=== PATIENT | female | born 2005 ===

== ENCOUNTER 2025-02-06 11:15 | Outpatient (RCR) | payer OTHER, SELFPAY ==
--- OUTSIDE RECORDS SUMMARY | 2024-11-22 13:48 | XMS_ITS ---
Author Organization [facility] Address [address] [place] [address] Care Team Providers Care Ornamental Iron Erector Name Role Phone Dottydelfino Purvi Primary Care Provider [phone] Amanda Araya Unavailable [phone] User, Clinician Unavailable [phone] REASON FOR VISIT Interfaced CHADIS scores Encounters Encounter Location Date Provider Diagnosis [facility] [address] [place], [place] [address] [place] [address] 07/26/2024 Clinician User Plan Of Treatment No Information Progress Notes * FITZ HENDRICKSB:[birth year] (19 yo F)Acc No.[id number]:07/26/2024 Patient: MARIAH VANGLLA :2005 A ge:19 Y S ex:Female Address:[facility] [address] [place] [address] Subjective: * Chief Complaints: * I nterfaced CHADIS scores * Medical History: * Surgical History: * Hospitalization/Major Diagno stic Procedure: * Medications: Objective: * Vitals: * Physical Examination: Assessment: Plan: * Treatment: * Procedure Codes: * true * Date: Generated for Printi ng/Faxing/eTransmitting on: 01/23/2024 11:22 AM 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
--- OUTSIDE RECORDS SUMMARY | 2024-11-22 13:48 | XMS_ITS ---
Author Organization [facility] Address [address] [place] [address] Care Team Providers Care Freelance Interpreter/Translator Name Role Phone Govind Purvi Primary Care Provider Amanda Araya Unavailable [phone] User, Clinician Unavailable [phone] REASON FOR VISIT Interfaced CHADIS scores Encounters Encounter Location Date Provider Diagnosis [facility] [address] [place], [place] [address] [place] [address] 07/26/2024 Clinician User Plan Of Treatment No Information Progress Notes * FITZ HENDRICKSB:[birth year] (19 yo F)Acc No.[id number]:07/26/2024 Patient: MARIAH VANGLLA :2005 A ge:19 Y S ex:Female Address:[facility] [address] [place] [address] Subjective: * Chief Complaints: * I nterfaced CHADIS scores * Medical History: * Surgical History: * Hospitalization/Major Diagno stic Procedure: * Medications: Objective: * Vitals: * Physical Examination: Assessment: Plan: * Treatment: * Procedure Codes: * true * Date: Generated for Printi ng/Faxing/eTransmitting on: 01/23/2024 01:48 PM 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
--- OUTSIDE RECORDS SUMMARY | 2024-11-22 13:48 | XMS_ITS ---
Author Organization [facility] Address [address] [place] [address] Care Team Providers Care Cad Designer Drafter Name Role Phone Govind Purvi Primary Care Provider Amanda Araya Unavailable [phone] Allergies Allergen (clinical drug ingredient) Drug/Non Drug Allergy documented on EMR Reaction Allergy Type Onset Date Status Information temporarily unavailable Cats Unknown Drug Allergy Active Information temporarily unavailable Seasonal Unknown Drug Allergy Active Results Component Value Reference Range Notes Hearing Screening Reviewed date:07/26/2024 12:03:14 PM Interpretation: Performing Lab: Notes/Report: Left 500Hz 25 Left 1000Hz 20 Left 2000Hz 20 Left 4000Hz 20 Left 6000Hz 20 Right 500Hz 25 Right 1000Hz 20 Right 2000Hz 20 Right 4000Hz 20 Right 6000Hz 20 Vision Screening Reviewed date:07/26/2024 12:03:38 PM Interpretation: Performing Lab: Notes/Report: Right Eye 10/10 Left Eye 10/10 Plus Lens [place] Glasses/Contacts None Ferritin Reviewed date:07/27/2024 08:50:38 AM Interpretation: Performing Lab: Notes/Report: FERRITIN 9 6-175 ng/mL PERFORMED BY: [facility], [address] [id number],[facility] [id number] . Iron Reviewed date:07/27/2024 08:50:13 AM Interpretation: Performing Lab: Notes/Report: IRON 57 37-145 ug/dL PERFORMED BY: [facility], [place] [id number] [place] [id number],[facility] [id number] . Hemoglobin (HGB) Reviewed date:07/26/2024 12:11:10 PM Interpretation:Normal Performing Lab: Notes/Report: Testing performed at: [address] [place] [address] REASON FOR VISIT 19 year well Medications Medication SIG (Take, Route, Frequency, Duration) Notes Start Date End Date Status FLUoxetine HCl 20 MG 1 capsule Orally On ce a day for 90 days 07/26/2024 Active MONI 3-0.02 MG 1 tablet Orally Once a day Active valACYclovir HCl Not -Taking Iron Active Immunizations Vaccine Route Administration Date Status Comme nts Tdap IM Intramuscular 07/26/2024 Administered Problems Problem Type SNOMED Code ICD Code Onset Dates Problem Status W/U Status Risk Notes Problem 39287987 Anxiety (F41.9) Active confirmed Vital Signs Weight 180.6 lbs 07/26/2024 Height 68.5 in 07/26/2024 BMI 27.06 kg/m2 07/26/2024 Blood pressure systolic 112 mm Hg 07/26/20 24 Blood pressure diastolic 68 mm Hg 024 Heart Rate 76 /min 07/26/2024 Encounters Encounter Location Date Provider Diagnosis [address] [place] [address] 07/26/20[facility] Encounter for genera l adult medical examination without abnormal findings Z00.00 ; Von Willebrand's disease D68.00 ; Iron deficiency E61.1 and Anxiety F41.9 Assessments Encounter Date Diagnosis (ICD Code) Assessment Notes Treatment Notes Treatment Clinical Notes Section Notes 07/26/2024 Encounter for general adult medical examination without abnormal findings (ICD-10 - Z00.00) 07/26/2024 Von Willebrand's disease (ICD-10 - D68.00) 07/26/2024 Iron deficiency (ICD-10 - E61.1) 07/26/2024 Anxiety (ICD-10 - F41.9) Plan Of Treatment Medication Medication Name Sig Start Date Stop Date Notes FLUoxetine HCl 20 MG 1 capsule Orally On ce a day for 90 days 07/26/2024 FLUoxetine HCl 10 MG 1 capsule Orally Once a day Next Appt Details Follow Up: med check in 6 mo nths, Reason: Procedure Notes * Category Sub-Category Detail Notes *Specimen Collection Venipuncture Kirti Aiken 07/26/2024 12:04:27 PM CDT >, Right Arm, 1 attempt, patient tolerated procedure well Immunizations Immunization Status assessed and standard AAP/CDC schedule recommended Progress Notes * JERO CHARLESARABELLAB:[birth year] (19 yo F)Acc No.[id number]:07/26/2024 Patient: BUBBA VANG Provider: Salvatore Araya MD :2005 A ge:19 Y S ex:Female Date:07/26/2024 Address:[facility] [address], 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 Injury D ate N /A Preferred Medication Form p ills. Next day phone # - [phone], Self Cell, ok to leave message. Tobacco T obacco Exposure? N o T obacco use by patient? n on smoker M ental Health/Depression Screening: Mental Health/Depression Screening S creening Tool P HQ-9, DESMOND-7 DESMOND-7 Score G AD-7 Score= 4 . DESMOND-7 Interpretation: N egative screening (score of 0-7).? PHQ-9 Score P HQ-9 Score= 4 . PHQ-9 Interpretation: N egative screen (total score 0-4).? PHQ-9 Follow-up Plan P HQ-9 Follow-Up Plan N egative Screen, no needs identified S ocial Determinants of Health: Food Insecurity W ithin the past 12 months, you worried that your food would run out before you got money to buy more. N ever True W ithin the past 12 months, the food you bought just didn't last and you didn't have money to buy more. N ever True Transportation Needs I n the past 12 months, has lack of transportation kept you from medical appointments, meetings, work or from getting things needed for daily living? N o Housing/Utilities W ithin the past 12 months, has housing or utility needs been identified? N o Other Positive Responses O ther Positive Responses N o Resources Provided / Plan N o needs identified. 1 8 Year and Older Well Visit: Concerns: 1 ) Needs von Willebrand labs checked today- last hemoglobin and iron stores were low (followed by [facility] hematology). Takes daily iron. 2) Has been on fluoxetine 10 mg for the past year- seemed to be helpful over the first several months, but now notting feeling the effect as much. No side effects. Will increase to 20 mg. 3) Followed by [facility] for menorrhagia and currently on Moni. 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 . Dental Visit: i n last 6 months, brushes twice per day.? Nutrition: w ell balanced diet. Body Image/Eating Disorder: s atisfied with body image, no concerns. Elimination: n o concerns. Sleep: n o problems reported. School: n o problems reported. Social Activity: n o concerns. Physical Activity: a ppropriate activity for age. Tuberculosis Screening: n o risks identified. 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 Menses o n Moni, followed by [facility]. * ROS: O phthalmologic: Vision screen p atient reports no concern. E NT: Hearing screen p atient reports no concern. ? * Medical History: * Surgical History: * Hospitalization/Major Diagno stic Procedure: * Medications: T akingYAZ 3-0.02 MG Tablet 1 tablet Orally Once a day FLUoxetine HCl 10 MG Capsule 1 capsule Orally Once a day Iron Taking MONI 3-0.02 MG Tablet 1 tablet Orally Once a day Taking FLUoxetine HCl 10 MG Capsule 1 capsule Orally Once a day Taking Iron Not-Taking/PRNvalACYclovir HCl Medication List reviewed and reconciled with the patientNot-Taking/PRN valACYclovir HCl Medication List reviewed and reconciled with the patient * Allergies: Laura Rendon[Allergies Verified] Objective: * Vitals: Wt 180.6lbs 07/26/2024 11:32:28 AM CDT Ht* 68.5in 07/26/2024 11:32:28 AM CDT Annelise patel BMI* 27.06Index 07/26/2024 11:32:28 AM CDT Annelise patel BP* sittin/68mm Hg 07/26/2024 11:32:28 AM CDT Annelise Hobbs burttoñitolaura Pulse* 76/min 07/26/2024 11:32:28 AM CDT Annelise Hobbs jorge * Examination: G eneral Examination: GENERAL APPEARANCE: a lert, well nourished. HEAD: n ormocephalic, atraumatic, no scalp lesions. EYES: p upils equal, round, reactive to light and accommodation, red light reflex present/equal, corneal light reflex present/equal. EARS: t ympanic membrane intact bilaterally, landmarks visible bilaterally. NOSE: n britney patent. ORAL CAVITY: m ucosa moist, no lesions, teeth in good repair. THROAT: n ormal. NECK/THYROID: n lucy supple, full range of motion. LYMPH NODES: n o axillary, supraclavicular or inguinal adenopathy. SKIN: n ormal, no suspicious lesions. HEART: r egular rate and rhythm, S1, S2 normal, no murmurs.? LUNGS: c lear to auscultation bilaterally. CHEST: n ormal shape and expansion. ABDOMEN: s oft, nontender, nondistended, bowel sounds present. BACK: n ormal exam of spine. MUSCULOSKELETAL: e xtremities with equal length and equal strength. EXTREMITIES: n ormal, full range of motion. PERIPHERAL PULSES: n ormal. NEUROLOGIC: n ormal strength, tone and reflexes. C haperone: Die Turner: n o sensitive exam done- sees OBGYN. ? Assessment: * Assessment: 1. E ncounter for general adult medical examination without abnormal findings - Z00.00 (Primary) 2 . V on Willebrand's disease - D68.00 3 . I yves deficiency - E61.1 4 . A nxiety - F41.9 Plan: * Treatment: 2. V on Willebrand's disease L AB: Ferritin (Collection Date & Time - 07/26/2024 11:47 AM) L AB: Iron (Collection Date & Time - 07/26/2024 11:47 AM) L AB: Hemoglobin (HGB) (Collection Date & Time - 07/26/2024 11:51 AM) 3. A nxiety Start FLUoxetine HCl Capsule, 20 MG, 1 capsule, Orally, Once a day, 90 days, 90 Capsule, Refills 3.? 4. O thers Stop FLUoxetine HCl Capsule, 10 MG, 1 capsule, Orally, Once a day. * Procedures: * Specimen Collection: Venipuncture R Annelise patel 07/26/2024 12:04:27 PM CDT >, Right Arm, 1 attempt, patient tolerated procedure well. I mmunizations: Immunization Status a ssessed and standard AAP/CDC schedule recommended. * Immunizations: Tdap : 0.5 mL (Route: Intramuscular) given by Annelise Aiken MA on Left Arm * Labs: * L ab: Hearing Screening (Collection Date & Time - 07/26/2024) Value Reference Range L eft 500Hz 25 * L eft 1000Hz 20 * L eft 2000Hz 20 * L eft 4000Hz 20 * L eft 6000Hz 20 * R ight 500Hz 25 * R ight 1000Hz 20 * R ight 2000Hz 20 * R ight 4000Hz 20 * R ight 6000Hz 20 * Annelise Aiken 07/26/2024 12: 02:59 PM CDT > ?Lab: Vision Screening (Collection Date & Time - 07/26/2024)* Value Reference Range R ight Eye 10/10 * L eft Eye 10/10 * P coral Lens Pass * G lasses/Contacts None * Annelise Aiken 07/26/2024 12: 03:24 PM CDT > ?Lab: Hemoglobin (HGB) (Collection Date & Time - 07/26/2024 11:51 AM) ?Normal* Value Reference Range H emoglobin 13.7 12.0-17.5 - g/dL * Amanda Araya 07/26/2024 12: 11:08 PM CDT > ?Lab: Iron* Value Reference Range I YVES 57 37-145 - ug/dL * Amanda Araya 07/27/2024 08: 50:11 AM CDT >This lab was reviewed by Amanda Araya on 07/27/2024 at 08:50 AM CDT ?Lab: Ferritin* Value Reference Range F ERRITIN 9 6-175 - ng/mL * This lab was reviewed by Curtis Araya on 07/27/2024 at 08:50 AM CDT * Procedure Codes: 9 6127 PHQ-9 Patient Health Questionnaire screen with [id number] DESMOND-7 Generalized Anxiety Disorder screen with [id number] Audio screening test- pure tone- air [id number] Vision screening, Modifiers: 59 75281 Specimen Handling and or [id number] Ferritin, Modifiers: 90 51910 Iron, Modifiers: 90 08622 HGB : Blood count; [id number] Venipuncture for collection of specimen(s) * Preventive Medicine: Anticipatory Guidance: S [facility] p arent/patient questionnaire(s) reviewed and safety/anticipatory guidance provided to family. C ardiovascular S creening Questionnaire reviewed and discussed with family. D ental: A dvised to see Dentist every 6 months. Immunizations/Injections: Nubia mayo: I ndividual components of each ordered vaccine were discussed regarding which diseases are prevented. Risk and benefits of vaccine(s) discussed. S tandard Questions for All Vaccines Serious reaction to any vaccine in the past? N o Serious illness present at this time??No Latex sensitivity? N o Patient screened for [place] eligibility & Vaccine Information Sheets given? Y es Was handout provided with [place] eligibility categories and Patient Account Services contact information? Y es T dap Is the patient 7 years old or older??Yes Seizure or neurological changes within 7 days of a previous DTaP/DT/Td dose? N o * Follow Up: m ed check in 6 months * * Sign off status: Completed true * Provider: Salvatore Araya MD Date: 0 07/26/2024 Generated for Crowi mar/Florinda/eTransmitting on: 1 01/23/2024 01:48 PM EMG TECHNICIAN History and Physical Notes * HPI (History of Present Illness) Category Sub-Category Detail Notes Category Not es MA/Nurse Intake Informant Self Tobacco Tobacco Exposure?: No Tobacco use by patient?: non smoker Injury Date: N/A Preferred Medication Form pills Next day phone # - [phone], Self Cell, ok to leave message Mental Health/Depression Screening Mental Health/Depression Screening Screening Tool: PHQ-9, DESMOND-7 PHQ-9 Score PHQ-9 Score=: 4 . PHQ-9 Interpretation: Negative screen (t otal score 0-4) DESMOND-7 Score DESMOND-7 Score=: 4 . DESMOND-7 Interpretation: Negative screening (score of 0-7) PHQ-9 Follow-up Plan PHQ-9 Follow-Up Plan: Negat ana maria Screen, no needs identified 18 Year and Older Well Visit Concerns: 1) Needs von Willebrand labs checked today- last hemoglobin and iron stores were low (followed by [facility] hematology). Takes daily iron. 2) Has been on fluoxetine 10 mg for the past year- seemed to be helpful over the first several months, but now notting feeling the effect as much. No side effects. Will increase to 20 mg. 3) Followed by [facility] for menorrhagia and currently on Moni. 4) Will be a senior at [employer], plays basketball, studying sociology and anthropology. 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 Moni, followed by [facility] Social Determinants of Health Food Insecurity Wi thin the past 12 months, you worried that your food would run out before you got money to buy more.: Never True Within the past 12 months, t he food you bought just didn't last and you didn't have money to buy more.: Never True Transportation Needs In the past 12 [facility], has lack of transportation kept you from medical appointments, meetings, work or from getting things needed for daily living?: No Resources Provided / Plan No needs ident ified Housing/Utilities Within the past 12 [facility], has housing or utility needs been identified?: No Other Positive Responses Other Positive Response s: No Examination Category Sub-Category Detail Notes Category Not es General Examination GENERAL APPEARANCE: alert, well no urished HEAD: normocephalic, atrau matic, no scalp lesions EYES: pupils equal, round, reactive to light and accommodation, red light reflex present/equal, corneal light reflex present/equal EARS: tympanic membrane in tact bilaterally, landmarks visible bilaterally NOSE: nares patent THROAT: normal NECK/THYROID: neck supple, full ra nge of motion HEART: regular rate and rhy thm, S1, S2 normal, no murmurs CHEST: normal shape and exp ansion LUNGS: clear to auscultatio n bilaterally ABDOMEN: soft, nontender, non distended, bowel sounds present NEUROLOGIC: normal strength, ton e and reflexes SKIN: normal, no suspiciou s lesions EXTREMITIES: normal, full range o f motion PERIPHERAL PULSES: normal BACK: normal exam of spine BREASTS: MUSCULOSKELETAL: extremities with equ al length and equal strength LYMPH NODES: no axillary, supracl avicular or inguinal adenopathy FEMALE GENITOURINARY: ORAL CAVITY: mucosa moist, no les ions, teeth in good repair [employer]SE [employer] PHYSICAL Die Turner Die Turner: no sensitive exam done- sees OBGYN
--- OUTSIDE RECORDS SUMMARY | 2024-11-22 13:49 | XMS_ITS | Patient Health Record ---
Author Organization [facility] Address [address] [place] [address] Care Team Providers Care Sand Shoveler Name Role Phone Govind Purvi Primary Care Provider [phone] Amanda Araya Unavailable [phone] User, Clinician Unavailable [phone] Allergies Allergen (clinical drug ingredient) Drug/Non Drug [...] Notes/Report: FERRITIN 9 6-175 ng/mL PERFORMED BY: [facility], [address] [address] [place] [id number],[facility] [id number] . Iron Reviewed date:07/27/2024 08:50:13 AM Interpretation: Performing Lab: Notes/Report: IRON 57 37-145 ug/dL [facility]FORMED BY: [facility] [id number] [place] [id number],[facility] [id number] . Hemoglobin (HGB) Reviewed date:07/26/2024 12:11:10 PM Interpretation:Normal Performing Lab: Notes/Report: Testing performed at: [place] [address] Reason For Referral No Information Medications Medication SIG (Take, Route, Frequency, Duration) Notes Start Date End Date Status FLUoxetine HCl 20 MG 1 capsule Orally On ce a day for 90 days 07/26/2024 Active ROBI 3-0.02 MG 1 tablet Orally Once a day Active valACYclovir HCl Not -Taking Iron Active Immunizations Vaccine Route Administration Date Status Comme nts Bexsero (MenB) IM Intramuscular 05/20/2021 Administered Bexsero (MenB) IM Intramuscular 06/22/2021 Administered DTaP (under 7yrs) Unknown 2003 Administered DTaP (under 7yrs) Unknown 2003 Administered DTaP (under 7yrs) Unknown 2003 Administered DTaP (under 7yrs) Unknown 06/11/2004 Administered DTaP (under 7yrs) Unknown 03/14/2008 Administered Hep A (1-18 yrs) Unknown 03/31/2007 Administered Hep A (1-18 yrs) Unknown 03/14/2008 Administered Hep B (0-19yrs) Unknown 2003 Administered Hep B (0-19yrs) Unknown 2003 Administered Hep B (0-19yrs) Unknown 06/11/2004 Administered HIB Unknown 2003 Administered HIB Unknown 2003 Administered HIB Unknown 2003 Administered HIB Unknown 06/11/2004 Administered HPV9* IM Intramuscular 06/27/2015 Administered HPV9* IM Intramuscular 10/06/2015 Administered HPV9* IM Intramuscular 03/26/2016 Administered Influenza (6-35 months) Unknown 2003 Administered Influenza (6-35 months) Unknown 2003 Administered Influenza P-Free* IM Intramuscular 10/06/2015 Administered Influenza P-Free* IM Intramuscular 10/05/2016 Administered Influenza P-Free* IM Intramuscular 10/19/2017 Administered Influenza P-Free* IM Intramuscular 08/28/2018 Administered Influenza P-Free* IM Intramuscular 11/02/2019 Administered Intranasal Flu Unknown 09/18/2010 Administered IPV Unknown 2003 Administered IPV Unknown 2003 Administered IPV Unknown 2003 Administered IPV Unknown 03/14/2008 Administered Menactra IM Intramuscular 03/29/2014 Administered Menactra IM Intramuscular 11/19/2019 Administered MMR Unknown 03/11/2004 Administered MMR Unknown 03/31/2007 Administered PPD ID Intradermal 01/11/2020 Administered Prevnar (PCV 7) Unknown 2003 Administered Prevnar (PCV 7) Unknown 2003 Administered Prevnar (PCV 7) Unknown 2003 Administered Prevnar (PCV 7) Unknown 09/22/2004 Administered Tdap IM Intramuscular 03/29/2014 Administered Tdap IM Intramuscular 07/26/2024 Administered Varicella Unknown 03/11/2004 Administered Varicella Unknown 03/31/2007 Administered Problems Problem Type SNOMED Code ICD Code Onset Dates Problem Status W/U Status Risk Notes Problem 39591211 Anxiety (F41.9) Active confirmed Problem 86378288 Iron deficiency (E61.1) Active confirmed Problem 587278100 Von Willebrand's disease (D68.00) Active confirmed Vital Signs Heart Rate 76 /min 07/26/2024 Blood pressure diastolic 68 mm Hg 07/26/2024 Height 68.5 in 07/26/2024 Blood pressure systolic 112 mm Hg 07/26/2024 Weight 180.6 lbs 07/26/2024 BMI 27.06 kg/m2 07/26/2024 Encounters Encounter Location Date Provider Diagnosis [facility] [address] [place] [address] 07/26/2024 [facility] Encounter for genera l adult medical examination without abnormal findings Z00.00 ; Von Willebrand's disease D68.00 ; Iron deficiency E61.1 and Anxiety F41.9 [facility] [address] [place] [address] 07/26/2024 Clinician User [facility] [address] [place] [phone] 07/26/2024 Clinician User Assessments Encounter Date Diagnosis (ICD Code) Assessment Notes Treatment Notes Treatment Clinical Notes Section Notes 07/26/2024 Encounter for general adult medical examination without abnormal findings (ICD-10 - Z00.00) 07/26/2024 Von Willebrand's disease (ICD-10 - D68.00) 07/26/2024 Iron deficiency (ICD-10 - E61.1) 07/26/2024 Anxiety (ICD-10 - F41.9) Plan Of Treatment No Information Insurance Providers Payer Name Payer Address Payer Phone Subscriber Number Group Number Insured Name Patient Relationship to Insured Coverage Start Date Coverage End Date 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 no NSAIDs, celebrex for pain 11/2023- patellar tendon repair at [facility] 06/2024- increasing fluoxetine to 20 mg f or anxiety Surgical History Surgery Date(Month/Year) R patellar tendon debridement with repai r 11/08/23 Hospitalization History Reason Date(Month/Year) none
--- OUTSIDE RECORDS SUMMARY | 2024-11-29 14:27 | XMS_ITS | Patient Health Record ---
Author Organization [facility] Address [address] [place] [address] [address] [place] [address] Care Team Providers Care Machine Grainer Name Role Phone Govind Purvi Primary Care Provider Amanda Araya Unavailable [phone] User, Clinician Unavailable [phone] Allergies Allergen (clinical drug ingredient) Drug/Non Drug Allergy documented on EMR Reaction Allergy Type Onset Date Status Information temporarily unavailable Cats Unknown Drug Allergy Active Information temporarily unavailable Seasonal Unknown Drug Allergy Active Results Component Value Reference Range Notes Hemoglobin (HGB) Reviewed date:07/26/2024 12:11:10 PM Interpretation:Normal Performing Lab: Notes/Report: Testing performed at: [address] [place] [address] Iron Reviewed date:07/27/2024 08:50:13 AM Interpretation: Performing Lab: Notes/Report: IRON 57 37-145 ug/dL PERFORMED BY: [facility], [address] [id number],[facility] [id number] . Ferritin Reviewed date:07/27/2024 08:50:38 AM Interpretation: Performing Lab: Notes/Report: FERRITIN 9 6-175 ng/mL PERFORMED BY: [facility], [address] [address] [place] [id number],[facility] [id number] . Vision Screening Reviewed date:07/26/2024 12:03:38 PM Interpretation: Performing Lab: Notes/Report: Right Eye 1010 Left Eye 1010 Plus Lens Pass Glasses/Contacts None Hearing Screening Reviewed date:07/26/2024 12:03:14 PM Interpretation: Performing Lab: Notes/Report: Left 500Hz 25 Left 1000Hz 20 Left 2000Hz 20 Left 4000Hz 20 Left 6000Hz 20 Right 500Hz 25 Right 1000Hz 20 Right 2000Hz 20 Right 4000Hz 20 Right 6000Hz 20 Reason For Referral No Information Medications Medication [...] Problem Status W/U Status Risk Notes Problem 28733470 Anxiety (F41.9) Active confirmed Problem 72660838 Iron deficiency (E61.1) Active confirmed Problem 068691269 Von Willebrand's disease (D68.00) Active confirmed Vital Signs Heart Rate 76 /min 07/26/2024 Blood pressure diastolic 68 mm Hg 07/26/2024 Height 68.5 in 07/26/2024 Blood pressure systolic 112 mm Hg 07/26/2024 Weight 180.6 lbs 07/26/2024 BMI 27.06 kg/m2 07/26/2024 Encounters Encounter Location Date Provider Diagnosis [facility] [id number] [facility] [place] [phone] 07/26/[address] [facility] [address] [place] [phone] 07/26/[address] [facility] [address] [place] [phone] 07/26/2024 [facility] Encounter for genera l adult medical examination [...] Insured Coverage Start Date Coverage End Date [facility] Open Access [id number] [address] [address] [place], [place] [id number] [phone] [id number] BUBBA CHARLES Self - patient is the insured Medical (General) History Medical History History ICD Code stress fracture right calcaneus 08/2019- [facility]- left patellofe moral syndrome; given stretching and strengthening exercises; FUP prn Iron deficiency anemia - seeing heme Von Willebrand's disease 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 no NSAIDs, celebrex for pain 11/2023- patellar tendon repair at [facility] 06/2024- increasing fluoxetine to 20 mg f or anxiety Surgical History Surgery Date(Month/Year) R patellar tendon debridement with repai r 11/08/23 Hospitalization History Reason Date(Month/Year) none
--- OUTSIDE RECORDS SUMMARY | 2024-11-29 14:27 | XMS_ITS | Clinical Summary ---
Author Organization [facility] Address [place], [place] [address] Care Team Providers Care Biophysics Teacher Name Role Phone Pcp, No Primary Care Provider Unavailabl e Allergies No known active allergies Medications ketoconazole 2% shampoo (NIZORAL) 2 % shampoo APPLY TOPICALLY TO THE SCALP 2 TO 3 TIMES PER WEEK NEEDED. LEAVE ON FOR 5 MINUTES AND RINSE 2 Active clindamycin 1% (CLEOCIN-T) 1 % gel APPLY TOPICALLY TO CLEAN DRY FACE EVERY MORNING 2 Active fluocinonide 0.05 TOPICAL (LIDEX) 0.05 % external solution APPLY TO THE AFFECTED AREA OF SCALP EVERY MORNING NEEDED 2 Active propranoloL (INDERAL) 10 mg tablet TAKE 1 TABLET BY MOUTH DAILY NEEDED FOR PANIC 2 Active valACYclovir (VALTREX) 500 mg tablet Take 500 mg by mouth once daily. 2 Active dextroamphetam ine-amphetamin e (ADDERALL XR) 20 mg Extended-Relea se capsule Take 20 mg by mouth. 4 Active ferrous sulfate 325 mg (65 mg iron) tablet Take 10.5 mg by mouth. Active FLUoxetine (PROZAC) 10 mg capsule Take 10 mg by mouth once daily. 3 11/05/20 24 Discontinu ed(*Patien t states no longer taking) atovaquone-pro guanil, 250-100 mg, (MALARONE) 250-100 mg tabletIndicati ons:Pharmacolo gic therapy Take 1 Tablet by mouth once daily. Begin 1-2 days before and continue until 1 week after exposure for prevention of malaria. 50 Tablet 4 11/05/20 24 Discontinu ed(*Patien t states no longer taking) buPROPion (WELLBUTRIN XL) 150 mg Extended-Relea se tablet 4 11/27/20 24 Discontinu ed(*Patien t states no longer taking) Active Problems Problem Noted Date Diagnosed Date Von Willebrand disease 12/08/2023 Patellofemoral pain syndrome 12/29/2022 Resolved Problems Problem Noted Date Diagnosed Date Resolved Date Iron deficiency anemia 12/08/202312/08 Encounters Date Type Department Care Team Description 11/27/2024 2:40 PM SPANISH LANGUAGE LECTURER Office Visit [facility] [address] [place] [address] Frankie Rowley MD Musculoskeletal Problem (Follow-up concussion DOI 10/31/2024/[employer] Basketball /Having concerns with sinus pressure causing more dizziness and visual difficulties. ) 11/27/2024 Travel 11/05/2024 9:55 AM SPANISH LANGUAGE LECTURER Office Visit [facility] [address] [place] [address] Frankie Rowley MD Musculoskeletal Problem (Consultation for Concussion DOI: 10/31/2024/[employer] Basket Ball ) 11/05/2024 Travel from Last 3 Months Immunizations Name Administration Dates Next Due COVID-19 VACCINE SPIKEVAX (M ODERNA 50MCG/0.5ML) 12YO+ PFS 09/15/2023 COVID-19 vaccine (PopsetBio NTech 30mcg/0.3mL) 12YO+ BIVALENT PF, MDV 09/20/2022 COVID-19 vaccine (SmartWatch [employer] Sound-Bio NTech 30mcg/0.3mL) PF, MDV 10/23/2021,03/21/2021,02/28/2021 DTaP 03/14/2008, 3,2003,05/08 DTaP-HIB (TriHIBIT) 06/11/2004 HIB PRP-T (ActHIB,Hiberix) 2003,2003 ,2003 HPV 9 (Gardasil 9) 03/26/2016,10/06/2015, 015 Hepatitis A (Peds) 03/14/2008,03/31/2007 Hepatitis B (Peds) 06/11/2004,2003, 003 Inactivated Polio Vaccine 03/14/2008,,2003,05/08 Influenza, IIV4 09/13/2023,,08/26/2021,11/02,08/28/2018,10/19/2017,10/05/2016 ,10/06/2015,09/22/2004 Influenza,LAIV4 Live Intrana kellie (Flumist) 09/18/2010 MMR 03/11/2004 MMRV 03/31/2007 Meningococcal B 06/22/2021,05/20/2021 Meningococcal Vaccine (Menactra) 11/19/2019,12/2013 Pneumococcal conj 7-Valent (Prevnar 7) 1 ,2003,2003,05/08 Rabavert 12/19/2023,12/08/2023 Tdap 03/29/2014 Typhoid (injectable) 12/08/2023 Varicella Vaccine 03/11/2004 Family History Medical History Relation Name Comments Good Health Father Good Health Mother Relation Name Status Comments Father Mother Social History Tobacco Use Types Packs/Day Years Used Date Smoking Tobacco: Never Smokeless Tobacco: Never Tobacco Cessation:Counseling Given: No Alcohol Use Standard Drinks/Week Comments Not Currently 0 (1 standard drink = 0.6 oz pur e alcohol) [facility] Utilities Answer Date Recorded Do you have trouble paying f or utilities (for example, heat, electricity, water, phone)? Yes 11/05/2024 PHQ-2 Answer Date Recorded PHQ-2 TOTAL SCORE 0 12/08/2023 Social Connections Answer Date Recorded Do you often feel lonely or isolated from those around you? 0 11/05/2024 Financial Resource Strain Answer Date R ecorded Difficulty of Paying Living Expenses 3 11/05/2024 Difficulty of Paying Living Expenses Not on file 11/05/2024 Food Insecurity Answer Date Recorded Do you worry your food will run out before you are able to buy more? 1 11/05/2024 Transportation Needs Answer Date Record ed Does lack of transportation keep you from medica l appointments? 1 11/05/2024 Does lack of transportation keep you from work, meetings or getting things that you need? 1 11/05/2024 Housing Stability Answer Date Recorded What is your housing situation today? 1 11/05/2024 Comments No Sex and Gender Information Value Date Recorded Sex Assigned at Not on file Legal Sex Female 3:37 PM SPANISH LANGUAGE LECTURER Gender Identity Not on file Sexual Orientation Not on file Obstetrics History Last Filed Vital Signs Vital Sign Reading Time Taken Comments Blood Pressure 131/76 11/27/2024 2:45 PM SPANISH LANGUAGE LECTURER Pulse 81 11/27/2024 2:45 PM SPANISH LANGUAGE LECTURER Temperature 36.6 C (97.8 F) 01/24/2023 2:37 PM SPANISH LANGUAGE LECTURER Respiratory Rate - - Oxygen Saturation 99% 11/27/2024 2:45 PM SPANISH LANGUAGE LECTURER Inhaled Oxygen Concentration - - Weight 79.3 kg (174 lb 12.8 oz) 11/27/2024 2:45 PM SPANISH LANGUAGE LECTURER Height 173.5 cm (5' 8.31) 11/05/2024 9:56 AM SPANISH LANGUAGE LECTURER Body Mass Index 26.34 11/05/2024 9:56 AM SPANISH LANGUAGE LECTURER Plan of Treatment Upcoming Encounters Date Type Department Care Team (Late st Contact Info) Description 12/18/2024 3:30 PM SPANISH LANGUAGE LECTURER Office Visit [facility] [address] [place] [address] Frankie Rowley MD [address] [place] [address] Health Maintenance Due Date Last Done Comments HIV for age 15-65 2018 Chlamydia for age 16-24 2019 Hepatitis C screening for age 18-79 2021 Pap test for age 21-65 2024 Tetanus booster 03/29/2024 03/29/2014 Influenza for age 9-49 07/29/2024 3, 09/20/2022, 08/26/2021, Additional history exists Depression screening for age 12+ 12/08/2024 12/08/2023 BMI (ht and wt on same day) for age 18+ 11/05/2025 11/05/2024, 12/08/2023, 12/30/2022 Pneumococcal series for age 6-49 Aged Out 09/22/2004, 2003, 2003, Additional history exists No longer eligible based on patient's age to complete this topic Tdap Completed 03/29/2014 HPV series for age 9-26 Completed 03/26/20 16, 10/06/2015, 06/27/2015 Meningococcal series for age 11-21 Completed 11/19/2019, 03/29/2014 COVID-19 vaccine series Completed 10/02/20, 09/15/2023, 09/20/2022, Additional history [place] [id number] [facility] Care Teams Biophysics Teacher Relationship Specialty Start Date End Date Pcp, No . PCP - General 11/24/23
--- OUTSIDE RECORDS SUMMARY | 2024-11-29 14:27 | XMS_ITS | Clinical Summary ---
Author Organization [facility] Address [address] [address] Care Team Providers Care Motor Teacher Name Role Phone Unassigned, Provider Primary Care Provider Unava ilable Source Comments You are receiving this document as you are listed as the primary care provider,follow-up provider, or the patient has been referred to you for consultation.This is in compliance with the Medicare and[facility] Hospital[facility] EHR Incentive Program,which states Providers who transition their patient to another setting of careor provider of care or refers their patient to another provider of care shouldprovide summary care record for each transition of care or referral. [facility] Allergies No known active allergies Medications Medication Sig Dispensed Refills Start Date End Date Status drospirenone-ethinyl estradiol (HARINDER) 3-0.03 MG tablet Take 1 Tablet by mouth daily. 05/28/2024 Active FLUoxetine (PROZAC) 10 MG capsule Take 1 Capsule (10 mg) by mouth daily. 02/15/2024 Active propranolol (INDERAL) 10 MG tablet Take 1 Tablet (10 mg) by mouth as needed. 01/04/2024 Active Tranexamic Acid 650 MG TABS Take 2 Tablets (1,300 mg) by mouth three times a day. 02/16/2024 Active valACYclovir (VALTREX) 500 MG tablet Take 1 Tablet (500 mg) by mouth daily. 02/14/2024 Active Immunizations Name Administration Dates Next Due 9vHPV (Gardasil 9) 03/26/2016,10/06/2015, 015 Bexsero (Meningococcal Group B Vaccine) 06/22/2021,05/20/2021 DTaP 03/14/2008, 3,2003,2002 DTaP/Hib 06/11/2004 Flu Vac (3+ yrs) 09/22/2004,2003, 3 HepA Ped/Adol (1-18 yrs) 03/14/2008,03/31/2007 HepB Ped/Adol (0-18 yrs) 06/11/2004,2003,1 Hib (ActHIB) 2003,2003,2003 IPV (Polio) 03/14/2008, 4,2003,2002 Influenza (Flucelvax) 09/13/2023,09/20/2022 Influenza IIV4 (Quadrivalent ) 0.5mL ([id number]) 08/26/2021,11/02/2019,08/28/2018,2016,10/05/2016,10/06/2015 Influenza LAIV3 2-49 years (Flumist) 09/18/2010 MCV4 (Menactra) 11/19/2019,03/29/2014 MMR 03/11/2004 MMRV (ProQuad) 03/31/2007 Moderna COVID-19 12+ 09/15/2023 Pfizer Bivalent 12+ 09/20/2022 Pfizer Monovalent 12+ Purple Top 10/23/2021,02/27,02/28/2021 Pneumococcal 7, PED 09/22/2004, 3,2003,2002 Tdap 03/29/2014 Varicella 03/11/2004 Social History Tobacco Use Types Packs/Day Years Used Date Smoking Tobacco: Never Smokeless Tobacco: Never Tobacco Cessation:Counseling Given: Not Answered Sex and Gender Information Value Date Recorded Sex Assigned at Not on file Gender Identity Not on file Sexual Orientation Not on file Last Filed Vital Signs Vital Sign Reading Time Taken Comments Blood Pressure 124/72 06/11/2024 3:31 PM CDT Pulse 59 06/11/2024 3:31 PM CDT Temperature 37.2 C (98.9 F) 06/11/2024 3:31 PM CDT Respiratory Rate 14 06/11/2024 3:31 PM CDT Oxygen Saturation 100% 06/11/2024 3:31 PM CDT Inhaled Oxygen Concentration - - Weight - - Height - - Body Mass Index - - Plan of Treatment Health Maintenance Due Date Last Done Comments Cervical Cancer Screening Due 2003 Chlamydia 2003 Hep C Screening (Preventive Services) 2003 HIV Screening (Preventive Services) 2019 Adult Preventive Visit 2021 DTaP/Tdap/Td (7 - Tdap) 03/29/2024 03/29/20 14, 03/14/2008, 06/11/2004, Additional history exists COVID-19 Vaccine ( season) 2024 09/15/2023, 09/20/2022, 10/23/2021, Additional history exists Influenza (#1) 2024 09/13/2023, 08/29, 08/26/2021, Additional history exists Zoster/Shingles (1 of 2) 2053 HepB Completed 06/11/2004, 11/29, 2003 Hib Completed 06/11/2004, 08/28, 2003, Additional history exists Pneumococcal Aged Out 09/22/2004, 08/28, 2003, Additional history exists No longer eligible based on patient's age to complete this topic Varicella Completed 03/31/2007, 03/11/2004 HepA Completed 03/14/2008, 03/31/2007 IPV (Polio) Completed 03/14/2008, 11/29, 2003, Additional history exists HPV Vaccine Completed 03/26/2016, 07/2015, 06/27/2015 MCV4 Completed 11/19/2019, 03/29/2014 Care Teams Motor Teacher Relationship Specialty Start Date End Date Unassigned, Provider [address] [place] [address] PCP - General 03
--- OUTSIDE RECORDS SUMMARY | 2024-11-29 14:28 | XMS_ITS | Referral Summary ---
Author Organization [facility] Address [address] [place] [address] Care Team Providers Care Supervisor Intelligence Analyst Name Role Phone Elsewhere, Pcp Primary Care Provider Unavailabl e Source Comments Patient records contain information from all sites at [facility]. For routine questions regarding patient records, call [phone] during business hours, M-F 8:00 AM - 5:00 PM Central Time. Record requests for emergency care only can be directed to [phone] at any time.[facility] Allergies Active Allergy Reactions Criticality Noted Date Comments Cat Dander Other (see comments) 12/30/2023 Itchy eyes, runny nose Pollen Extracts Other (see comments) 12/30/2023 Itchy eyes, runny nose, congestion Medications clindamycin (CLEOCIN T) 1 % gel Apply 1 Application topically daily. 2 Active fluocinonide (LIDEX) 0.05 % external solution Apply 1 Application topically as needed. 2 Active FLUoxetine (PROzac) 10 mg capsule Take 10 mg by mouth daily. 3 Active ketoconazole (NIZORAL) 2 % shampoo Apply 1 Application topically as needed for irritation. 2 Active propranoloL (INDERAL) 10 mg tablet TAKE 1 TABLET BY MOUTH DAILY NEEDED FOR PANIC 2 Active valACYclovir (VALTREX) 500 mg tablet Take 500 mg by mouth daily. 2 Active magnesium glycinate 100 mg magnesium capsule Take 350 mg by mouth daily. Active adapalene 0.3 % gel with pump APPLY TOPICALLY TO CLEAN DRY FACE 2 TO 3 TIMES A WEEK IN THE MORNING. INCREASE TO EVERY NIGHT TOLERATED 3 Active drospirenone-e thinyl estradioL 3-0.03 mg per tablet Take 1 tablet by mouth daily. 4 Active ferrous sulfate (THOMAS-IRON ORAL) Take 10.5 mg by mouth daily. Active magnesium 200 mg tablet Take 350 mg by mouth daily before morning meal. Active ascorbic acid, vitamin C, (ascorbic acid) 500 mg tablet Take 500 mg by mouth daily. 4 01/21/20 24 Discontin ued(Thera py completed ) Active Problems Patient Care Coordination No te Formatting of this note migh t be different from the original. PATIENT SUMMARY: Type 1 Von Willebrand Disease CHRONIC DISEASE MANAGEMENT: Please contact the [facility] ([phone]) prior to any invasive procedure. ACTION PLAN: Please refer to Bleeding Disorder Action Plan for management of bleeding concerns. Problem Noted Date Diagnosed Date Von Willebrand Disease Type 1 01/04/2024 Social History Tobacco Use Types Packs/Day Years Used Date Smoking Tobacco: Never Passive Smoke Exposure: Never Smokeless Tobacco: Never Alcohol Use Standard Drinks/Week Comments Not Currently 2 (1 standard drink = 0.6 oz pur e alcohol) [facility] Utilities Answer Date Recorded In the past 12 months has e [employer], [employer], oil, or water [employer] threatened to shut off services in your home? No 02/07/2024 Exercise Vital Sign Answer Date Recorde d On average, how many days pe r week do you engage in moderate to strenuous exercise (like a brisk walk)? 5 days 02/07/2024 On average, how many minutes do you engage in exercise at this level? 30 min 02/07/2024 Hunger Vital Sign Answer Date Recorded Within the past 12 months, y ou worried that your food would run out before you got the money to buy more. Never true 02/07/20 Within the past 12 months, t he food you bought just didn't last and you didn't have money to get more. Never true 02/07/2024 PRAPARE - Transportation Answer Date Re corded In the past 12 months, has l ack of transportation kept you from medical appointments or from getting medications? No 01/26 In the past 12 months, has l ack of transportation kept you from meetings, work, or from getting things needed for daily living? No 02/07/2024 Nutrition Answer Date Recorded On average, how many serving s of fruits and vegetables do you eat per day (serving size is equal to 1 cup or approximately the size of a tennis ball)? 3-5 02/07/2024 Dental Answer Date Recorded Dental: Regular Dentist Yes 02/07/20 Employment Answer Date Recorded Employment status N/A 02/07/2024 Housing Stability Answer Date Recorded What is your living situation today? I have a [facility] place to live 02/07/2024 Comments Unknown Sex and Gender Information Value Date Recorded Sex Assigned at Female 01/11/2024 3:36 PM DIGITAL COMMUNITY MANAGER Legal Sex Female 10:23 AM DIGITAL COMMUNITY MANAGER Gender Identity Female 01/11/2024 3:36 PM DIGITAL COMMUNITY MANAGER Sexual Orientation Straight 01/11/2024 3: 36 PM DIGITAL COMMUNITY MANAGER Last Filed Vital Signs Vital Sign Reading Time Taken Comments Blood Pressure 109/58 01/27/2024 10:32 AM DIGITAL COMMUNITY MANAGER Pulse 66 01/27/2024 10:32 AM DIGITAL COMMUNITY MANAGER Temperature 36.6 C (97.9 F) 01/27/2024 8:48 AM DIGITAL COMMUNITY MANAGER Respiratory Rate 18 01/27/2024 10:3 2 AM DIGITAL COMMUNITY MANAGER Oxygen Saturation - - Inhaled Oxygen Concentration - - Weight 74.7 kg (164 lb 10.9 oz) 01/04/2024 9:28 AM DIGITAL COMMUNITY MANAGER Height 174.4 cm (5' 8.66) 01/04/2024 9:28 AM CS T Body Mass Index 24.56 01/04/2024 9:28 AM DIGITAL COMMUNITY MANAGER Plan of Treatment Not on file Insurance [facility] Care Teams Supervisor Intelligence Analyst Relationship Specialty Start Date End Date Elsewhere, Pcp PCP - General Internal Medicine 02/08/24
--- OUTSIDE RECORDS SUMMARY | 2024-11-29 14:28 | XMS_ITS ---
Author Organization [facility] Address [address] [place] [address] Care Team Providers Care Internal Control Specialist Name Role Phone Unavailable Unavailable Unavailable Surgery Details Not on file Complications Check Surgery Details section. Procedure Estimated Blood Loss Check Surgery Details section. Procedure Findings Check Surgery Details section. Procedure Specimens Taken Check Surgery Details section.
--- OUTSIDE RECORDS SUMMARY | 2024-11-29 14:28 | XMS_ITS | Clinical Summary ---
Author Organization [facility] Address [address] [place] [address] Care Team Providers Care Procurement Consultant Name Role Phone Elsewhere, Pcp Primary Care Provider Unavailabl e Source Comments Patient records contain information from all sites at [facility]. For routine questions regarding patient records, call [phone] during business hours, M-F 8:00 AM - 5:00 PM Central Time. Record requests for emergency care only can be directed to [phone] at any time.[facility] Allergies Active Allergy Reactions Criticality Noted Date [...] Disease CHRONIC DISEASE MANAGEMENT: Please contact the [facility] ([phone]) prior to any invasive procedure. ACTION PLAN: [...] drink = 0.6 oz pur e alcohol) [facility] Utilities Answer Date Recorded In the past 12 months has e [employer], [employer], oil, or water [employer] threatened to shut off services in your [...] your living situation today? I have a [facility] place to live 02/07/2024 Comments Unknown Sex and Gender Information Value Date Recorded Sex Assigned at Female 01/11/2024 3:36 PM DIRECTOR DANCE Legal Sex Female 10:23 AM DIRECTOR DANCE Gender Identity Female 01/11/2024 3:36 PM DIRECTOR DANCE Sexual Orientation Straight 01/11/2024 3: 36 PM DIRECTOR DANCE Last Filed Vital Signs Vital Sign Reading Time Taken Comments Blood Pressure 109/58 01/27/2024 10:32 AM DIRECTOR DANCE Pulse 66 01/27/2024 10:32 AM DIRECTOR DANCE Temperature 36.6 C (97.9 F) 01/27/2024 8:48 AM DIRECTOR DANCE Respiratory Rate 18 01/27/2024 10:3 2 AM DIRECTOR DANCE Oxygen Saturation - - Inhaled Oxygen Concentration - - Weight 74.7 kg (164 lb 10.9 oz) 01/04/2024 9:28 AM DIRECTOR DANCE Height 174.4 cm (5' 8.66) 01/04/2024 9:28 AM CS T Body Mass Index 24.56 01/04/2024 9:28 AM DIRECTOR DANCE Plan of Treatment Health Maintenance Due Date Last Done Comments Cervical/Vaginal Cancer Screening 2003 Chlamydia and Gonorrhea Screening 2003 HIV Screening 2003 Hearing Screening during Well Child Visit 2003 Hepatitis C Screening 2003 TB Screening during Well Child Visit 2003 1 week Well Child Check-Up 2003 1 month Well Child Check-Up 2003 2 month Well Child Check-Up 2003 4 month Well Child Check-Up 2003 6 month Well Child Check-Up 2003 9 month Well Child Check-Up 2003 12 month Well Child Check-Up 02/05/2004 15 month Well Child Check-Up 05/07/2004 18 month Well Child Check-Up 08/07/2004 2 year Well Child Check-Up 02/04/2005 30 month Well Child Check-Up 08/07/2005 3 year Well Child Check-Up 02/04/2006 Well Child Check-Up Completed in Past Year 02/04/2006 4 year Well Child Check-Up 02/04/2007 5 year Well Child Check-Up 02/05/2008 6 year Well Child Check-Up 02/04/2009 7 year Well Child Check-Up 02/04/2010 8 year Well Child Check-Up 02/04/2011 9 year Well Child Check-Up 02/05/2012 10 year Well Child Check-Up 02/04/2013 11 year Well Child Check-Up 02/04/2014 12 year Well Child Check-Up 02/04/2015 13 year Well Child Check-Up 02/05/2016 14 year Well Child Check-Up 02/04/2017 15 year Well Child Check-Up 02/04/2018 16 year Well Child Check-Up 02/04/2019 17 year Well Child Check-Up 02/05/2020 18 year Well Child Check-Up 02/04/2021 19 year Well Child Check-Up 02/04/2022 20 year Well Child Check-Up 02/04/2023 Depression Screening (Annual PHQ-2) 11/28/2023 19 year Well Child Check-Up 02/05/2024 Well Child Check-Up ([facility]) 02/05/2024 DTaP,Tdap,and Td Vaccines (7 - Td or Tdap) 03/29/2024 03/29/2014, 03/14/2008, 06/11/2004, Additional history exists COVID-19 Vaccine ( - 2023- season) 2024 09/15/2023, 09/20/2022, 10/23/2021, Additional history exists Influenza Vaccine (#1) 2024 , 09/20/2022, 08/26/2021, Additional history exists Hepatitis B Vaccines Completed 06/11/2004, 2003, 2003 Pneumococcal vaccine (0-49 years) Aged Out 09/22/2004, 2003, 2003, Additional history exists No longer eligible based on patient's age to complete this topic IPV Vaccines Completed 03/14/2008, 11/29, 2003, Additional history exists HPV Vaccines Completed 03/26/2016, 07/2015, 06/27/2015 Meningococcal Vaccine Completed 11/19/2019, 014 Insurance [facility] Care Teams Procurement Consultant Relationship Specialty Start Date End Date Elsewhere, Pcp PCP - General Internal Medicine 02/08/24
== END 2025-06-06 23:59 | disposition home or self-care (01) ==
PROVIDERS: Visit Provider Family Medicine
DX: S06.0X0A Concussion without loss of consciousness, initial encounter (principal); Z51.89 Encounter for other specified aftercare
CPT/HCPCS: 97110; 97112; 97140; 97162